=== PATIENT | male | born 2000 | race Hispanic/Latino ===

== ENCOUNTER 2022-01-05 15:34 | Emergency (ER) | payer OTHER ==
[~2022-01-05] VITALS: Ht 143.5 cm; Wt 86.0 kg
[~2022-01-05 15:34] MED LIST: AUGMENTIN400 MG OR; NO HOME MEDS
[2022-01-05 18:08] VITALS: BP 137/79
[2022-01-05] MEDS ORDERED: OMNI-PAC300 MG PO (18:09)
== END 2022-01-05 18:19 | disposition home or self-care (01) ==
LOC: ED 15:34
DX: S60.021A Contusion of right index finger without damage to nail, initial encounter (principal); S60.511A Abrasion of right hand, initial encounter; W22.09XA Striking against other stationary object, initial encounter